=== PATIENT | male | born 1980 ===

== ENCOUNTER 2018-10-11 08:47 | Emergency (ER) | payer OTHER ==
[2018-10-11 09:19] VITALS: BMI 50.9
[2018-10-11 09:20] VITALS: BP 152/86; PULSE 84; RESP 19; TEMP 98.6; O2SAT 95
--- NOTE | 2018-10-11 09:57 | C.PDOC ---
History Of Present Illness 38-year-old male presents to the ED for evaluation of sore throat for two days. Patient also reports productive cough with green sputum and runny nose. Patient denies fever, chills, chest pain, shortness of breath, sick contacts. Time Seen by Provider: 10/11/18 09:21 Chief Complaint (Nursing): ENT Problem History Per: Patient Onset/Duration Of Symptoms: Days (2) Current Symptoms Are (Timing): Still Present Symptoms Have Been: Continuous Severity: Mild Past Medical History Reviewed: Historical Data, Nursing Documentation, Vital Signs Vital Signs: Last Vital Signs Temp 98.6 F 10/11/18 09:19 Pulse 84 10/11/18 09:19 Resp 19 10/11/18 09:19 BP 152/86 H 10/11/18 09:19 Pulse Ox 95 10/11/18 09:19 - Medical History PMH: HTN Surgical History: No Surg Hx Family History: States: No Known Family Hx - Social History Hx Alcohol Use: No Hx Substance Use: No - Immunization History Hx Tetanus Toxoid Vaccination: No Hx Influenza Vaccination: Yes Hx Pneumococcal Vaccination: No Review Of Systems Constitutional: Negative for: Fever, Chills ENT: Positive for: Nose Congestion, Throat Pain. Negative for: Ear Pain Cardiovascular: Negative for: Chest Pain Respiratory: Positive for: Cough, Sputum. Negative for: Shortness of Breath Gastrointestinal: Negative for: Nausea, Vomiting, Abdominal Pain, Diarrhea Genitourinary: Negative for: Dysuria Skin: Negative for: Rash Physical Exam - Physical Exam Appears: Non-toxic, No Acute Distress, Other (morbidly obese) Skin: Normal Color, Warm, Dry, No Rash Head: Normacephalic Eye(s): bilateral: Normal Inspection Nose: Normal Oral Mucosa: Moist Tongue: Normal Appearing Lips: Normal Appearing Throat: Erythema (mild, pharyngeal), No Exudate, No Drooling, Other (uvula midline and normal in appearance, tonsils normal ) Neck: Supple Chest: Symmetrical, No Deformity, No Tenderness Cardiovascular: Rhythm Regular, No Murmur Respiratory: Normal Breath Sounds, No Rales, No Rhonchi, No Wheezing, Other (speaking in full sentences, occasional cough noted ) Extremity: Normal ROM Neurological/Psych: Oriented x3 ED Course And Treatment O2 Sat by Pulse Oximetry: 95 (on RA) Pulse Ox Interpretation: Normal Progress Note: Patient given PO Motrin and Tessalon. Rxs for same + chloraseptic spray given. Patient instructed to follow up with PMD/clinic in 1- 2 days, and he understands he should return to ED if symptoms worsen. Disposition Counseled Patient/Family Regarding: Diagnosis, Need For Followup, Rx Given - Disposition Referrals: Mathew Rivas MD [Staff Provider] - Disposition: HOME/ ROUTINE Disposition Time: 10:00 Condition: STABLE Additional Instructions: FOLLOW UP WITH YOUR DOCTOR IN 1-2 DAYS USE MEDICATIONS NEEDED RETURN TO ER IF SYMPTOMS WORSEN Prescriptions: Benzonatate [Tessalon Perles] 100 mg PO BID PRN #15 sgl PRN Reason: Cough Ibuprofen [Motrin Tab] 600 mg PO Q6 PRN #30 tab PRN Reason: fever/pain Phenol/Glycerin [Chloraseptic Max Outing] 1 spray MM Q6 PRN #1 spray PRN Reason: THROAT PAIN Instructions: Cough, Runny Nose, and the Common Cold (DC), Viral Pharyngitis (DC) Forms: [employer] ([place]), Work Excuse Print Language: SCOTTISH - Clinical Impression Clinical Impression: Acute viral pharyngitis, Viral upper respiratory illness - Scribe Statement The provider has reviewed the documentation as recorded by the Scribe (Gali Montoya) Provider Attestation: All medical record entries made by the Scribe were at my direction and personally dictated by me. I have reviewed the chart and agree that the record accurately reflects my personal performance of the history, physical exam, medical decision making, and the department course for this patient. I have also personally directed, reviewed, and agree with the discharge instructions and disposition.
== END 2018-10-11 10:00 | disposition home or self-care (01) ==
LOC: C.ER 08:47
DX: J02.8 Acute pharyngitis due to other specified organisms (principal); I10 Essential (primary) hypertension